=== PATIENT | female | born 1950 | race Caucasian/White ===

== ENCOUNTER 2017-02-03 22:04 | Emergency (ER) | payer MEDICARE, OTHER ==
[2017-02-03] MEDS ORDERED: NS 0.9% 1000 ML* 1,000 ML IV ONE (22:38)
[2017-02-04 00:08] VITALS: BP 117/62
[2017-02-04 01:12] LABS: Urine Bacteria Absent (Absent); Urine Bilirubin Negative (Negative); Urine Glucose Negative (Negative); Urine Nitrite Negative (Negative)
[2017-02-04 01:23] LABS: Hematocrit 36 % (35-47); Hemoglobin 11.9 g/dl (12.0-16.0); Mean Corpuscular HGB Conc 33 g/dl (31-36); Mean Corpuscular Hemoglobin 30 pg (27-31); Mean Corpuscular Volume 91 fL (80-97); Mean Platelet Volume 7 um3 (7.4-10.4); Red Blood Count 3.93 10^6/ul (4.0-5.4); Red Cell Distribution Width 13 % (10.5-15)
[2017-02-04 01:34] LABS: Albumin 4.1 g/dL (3.2-5.2); BUN/Creatinine Ratio 13.4 (8-20); Calcium 8.2 mg/dL (8.6-10.3); EGFR African American 112.9 (>60); EGFR Non-African American 87.8 (>60); Potassium 4.4 mmol/L (3.5-5.0); Total Bilirubin 0.3 mg/dL (0.2-1.0); Total Protein 6.1 g/dL (6.4-8.9)
[2017-02-04 01:54] LABS: TSH (Thyroid Stimulating Horm) 0.91 mcIU/mL (0.34-5.60)
[2017-02-04 01:57] LABS: Magnesium 1.8 mg/dL (1.9-2.7)
--- NOTE | 2017-02-04 02:06 | ED ---
Mendoza Interiano Aidan, scribed for Teresa Blackburn MD on 02/03/17 at 2341 . Syncope/Near Syncope - HPI Summary HPI Summary: 66 y/o female presents to the ED with a complaint of an acute, moderate episode of near-syncope that occurred at 2030 this evening while the patient was drinking with friends out in the sun. She claims to have had only 3 drinks of wine. According to her , she did not lose consciousness or hit her head. After receiving a bag of fluids, she is feeling much better. Hx of reactive airway disease that recently resolved, breast CA, hypothyroidism, GERD, and depression. - History Of Current Complaint Chief Complaint: EDSyncope Time Seen by Provider: 02/03/17 22:22 Hx Obtained From: Patient Onset/Duration: Sudden Onset, Lasting Minutes, Resolved Timing: Intermittent Episode Lasting Context: Witnessed Activity At Onset: At Rest Associated Head Trauma: No Aggravating Factor(s): Other - possibly the heat and alcohol Alleviating Factor(s): Other - bag of fluids Associated Signs And Symptoms: Negative Frequency: Episodes x___ - 1, Episodes Lasting ____ (in Mins/Days/Weeks/Years) - seconds to minutes - Risk Factors Dysrhythmia Risk Factors: Age Greater Than 45 - Allergies/Home Medications Allergies/Adverse Reactions: Allergies Allergy/AdvReac Type Severity Reaction Status Date / Time Adhesive Tape Allergy Hives Verified 02/03/17 22:40 [Tegaderm Dressing] Benzyl Alcohol Allergy Anaphylatic Verified 02/03/17 22:40 [From Herceptin] Shock Chlorhexidine Allergy Rash Verified 02/03/17 22:40 [From Hibiclens] Chocolate Allergy Anaphylatic Verified 02/03/17 22:40 Shock Hydrocodone Allergy Hives Verified 02/03/17 22:40 Penicillins Allergy Rash Verified 02/03/17 22:40 Trastuzumab [From Herceptin] Allergy Anaphylatic Verified 02/03/17 22:40 Shock PMH/Surg Hx/FS Hx/Imm Hx Previously Healthy: No - Hx of hypothyroidism, Breast CA, GERD Respiratory History: Reports: Other Respiratory Problems/Disorders - reactive airway disease Psychiatric History: Reports: Hx Depression Infectious Disease History: No Infectious Disease History: Denies: Traveled Outside the [place] in Last 30 Days - Family History Known Family History: Positive: Hypertension - Social History Occupation: Unemployed - homemaker Lives: With Family Alcohol Use: Occasionally Substance Use Type: Reports: None Smoking Status (MU): Never Smoked Tobacco Review of Systems Constitutional: Negative Eyes: Negative ENT: Negative Cardiovascular: Negative Respiratory: Negative Gastrointestinal: Negative Genitourinary: Negative Musculoskeletal: Negative Skin: Negative Neurological: Other - episode of near-syncope Negative: Headache, Weakness, Paresthesia, Numbness, Syncope, Slurred Speech Psychological: Normal All Other Systems Reviewed And Are Negative: Yes Physical Exam - Summary Physical Exam Summary: General: Well appearing, no pain distress Skin: Warm, Skin Color Reflects Adequate Perfusion, Dry Eyes: EOMI, CHERYL ENT: Pharynx normal, TMs normal; POSITIVE: dry mucous membranes Neck: Supple, nontender Respiratory: CTA, breath sounds present, no rhonchi, no wheezes, no rales Cardiovascular: RRR, no murmur, no rub, no gallop Abdomen: Soft, nontender, Non-distended, no guarding, no rebound Bowel: Present Musculoskeletal: JENNIFER, No edema Neuro: Sensory/motor intact, A&Ox3, CN intact 2-12 Psych: Affect/mood appropriate Triage Information Reviewed: Yes Vital Signs On Initial Exam: Initial Vitals Temp Pulse Resp BP Pulse Ox 97.8 F 84 16 105/67 100 02/03/17 22:31 02/03/17 22:31 02/03/17 22:31 02/03/17 22:31 02/03/17 22:31 Vital Signs Reviewed: Yes - [place] Coma Scale Coma Scale Total: 15 Diagnostics - Vital Signs Vital Signs Temp Pulse Resp BP Pulse Ox 02/03/17 22:34 97.8 F 78 16 106/67 99 02/03/17 22:31 97.8 F 84 16 105/67 100 - Laboratory Lab Results: Lab Results 02/03/17 02/03/17 02/03/17 Range/Units 23:30 23:30 23:30 WBC Cancelled RBC Cancelled Hgb Cancelled Hct Cancelled MCV Cancelled MCH Cancelled MCHC Cancelled RDW Cancelled Plt Count Cancelled MPV Cancelled Neut % (Auto) Cancelled Lymph % (Auto) Cancelled Bibb % (Auto) Cancelled Eos % (Auto) Cancelled Baso % (Auto) Cancelled Absolute Neuts (auto) Cancelled Absolute Lymphs (auto) Cancelled Absolute Monos (auto) Cancelled Absolute Eos (auto) Cancelled Absolute Basos (auto) Cancelled Absolute Nucleated RBC Cancelled CBC Comment Cancelled Nucleated RBC % Cancelled Sodium Cancelled Potassium Cancelled Chloride Cancelled Carbon Dioxide Cancelled Anion Gap Cancelled BUN Cancelled Creatinine Cancelled Est GFR ( Amer) Cancelled Est GFR (Non-Af Amer) Cancelled BUN/Creatinine Ratio Cancelled Glucose Cancelled Lactic Acid Cancelled Calcium Cancelled Magnesium Cancelled Total Bilirubin Cancelled AST Cancelled ALT Cancelled Alkaline Phosphatase Cancelled Troponin I Cancelled Total Protein Cancelled Albumin Cancelled Globulin Cancelled Albumin/Globulin Ratio Cancelled TSH Cancelled Urine Color Urine Appearance Urine pH (5-9) Ur Specific Brooks (1.010-1.030) Urine Protein (Negative) Urine Ketones (Negative) Urine Blood (Negative) Urine Nitrate (Negative) Urine Bilirubin (Negative) Urine Urobilinogen (Negative) Ur Leukocyte Esterase (Negative) Urine WBC (Auto) (Absent) Urine RBC (Auto) (Absent) Ur Squamous Epith Cells (Absent) Urine Bacteria (Absent) Urine Glucose (Negative) Serum Alcohol Cancelled 02/04/17 02/04/17 02/04/17 Range/Units 00:51 01:00 01:00 WBC 10.0 RBC 3.93 L Hgb 11.9 L Hct 36 MCV 91 MCH 30 MCHC 33 RDW 13 Plt Count 242 MPV 7 L Neut % (Auto) 83.7 H Lymph % (Auto) 12.5 L Bibb % (Auto) 2.5 Eos % (Auto) 0.4 Baso % (Auto) 0.9 Absolute Neuts (auto) 8.4 H Absolute Lymphs (auto) 1.3 Absolute Monos (auto) 0.3 Absolute Eos (auto) 0 Absolute Basos (auto) 0.1 Absolute Nucleated RBC 0.01 CBC Comment Nucleated RBC % 0.1 Sodium 136 Potassium 4.4 Chloride 106 Carbon Dioxide 23 Anion Gap 7 BUN 9 Creatinine 0.67 Est GFR ( Amer) 112.9 Est GFR (Non-Af Amer) 87.8 BUN/Creatinine Ratio 13.4 Glucose 108 H Lactic Acid Calcium 8.2 L Magnesium 1.8 L Total Bilirubin 0.30 AST 16 ALT 15 Alkaline Phosphatase 50 Troponin I 0.00 Total Protein 6.1 L Albumin 4.1 Globulin 2.0 Albumin/Globulin Ratio 2.1 TSH 0.91 Urine Color Straw Urine Appearance Clear Urine pH 6.0 (5-9) Ur Specific Brooks 1.005 L (1.010-1.030) Urine Protein Negative (Negative) Urine Ketones Negative (Negative) Urine Blood 1+ H (Negative) Urine Nitrate Negative (Negative) Urine Bilirubin Negative (Negative) Urine Urobilinogen Negative (Negative) Ur Leukocyte Esterase Negative (Negative) Urine WBC (Auto) Trace(0-5/hpf) (Absent) Urine RBC (Auto) Trace(0-2/hpf) (Absent) Ur Squamous Epith Cells Present H (Absent) Urine Bacteria Absent (Absent) Urine Glucose Negative (Negative) Serum Alcohol 126 H Result Diagrams: 02/04/17 01:00 02/04/17 01:00 Lab Statement: Any lab studies that have been ordered have been reviewed, and results considered in the medical decision making process. - EKG EKG 4 Cardiac Rate: NL - 75 BPM EKG Rhythm: Sinus Rhythm EKG Interpretation: ANTERIOR Qs, NORMAL SINUS RHYTHM, NO PRIOR TO COMPARE Course/Dx Course Of Treatment: 66 yo with near syncope labs essentially normal ok to go home - Diagnoses Provider Diagnoses: Syncope Discharge - Discharge Plan Condition: Stable Disposition: HOME The documentation as recorded by the Mendoza raygoza Aidan accurately reflects the service I personally performed and the decisions made by , Teresa Blackburn MD.
== END 2017-02-04 02:43 | disposition home or self-care (01) ==
LOC: ED 22:04
DX: R55 Syncope and collapse (principal); E03.9 Hypothyroidism, unspecified; K21.9 Gastro-esophageal reflux disease without esophagitis; J45.909 Unspecified asthma, uncomplicated; F32.9 Major depressive disorder, single episode, unspecified; Z85.3 Personal history of malignant neoplasm of breast; Z88.5 Allergy status to narcotic agent; Z88.0 Allergy status to penicillin; Z88.8 Allergy status to other drugs, medicaments and biological substances; Z91.048 Other nonmedicinal substance allergy status
CPT/HCPCS: 36415; 80053; 80320; 81003; 81015; 83605; 83735; 84443; 84484; 85025; 93005; 99282; G0480

== ENCOUNTER 2017-09-23 14:37 | Emergency (ER) | payer MEDICARE, OTHER ==
[2017-09-23 15:43] VITALS: BP 150/93
--- NOTE | 2017-09-23 17:10 | UC ---
Zia Interiano Stephanie, scribed for Flaco Roberto MD on 09/23/17 at 1606 . FLU HPI - HPI Summary HPI Summary: The pt is a 67 y/o F presenting to with c/o influenza symptoms that began yesterday. Symptoms include fever, CHANDLER, sore throat, nasal congestion, dizziness and myalgia. The pt denies coughing, abd pain, diarrhea and dysuria. - History of Current Complaint Chief Complaint: UCGeneralIllness Stated Complaint: COUGH/CONGESTION Time Seen by Provider: 09/23/17 15:57 Hx Obtained From: Patient ?: No Onset/Duration: Gradual Onset, Lasting Days - 1, Still Present Severity Initially: Severe Pain Intensity: 8 Pain Scale Used: 0-10 Numeric Associated Signs & Symptoms: Positive: Fever, Myalgia, Sore Throat, Nasal Congestion, Headache - Allergy/Home Medications Allergies/Adverse Reactions: Allergies Allergy/AdvReac Type Severity Reaction Status Date / Time Adhesive Tape Allergy Hives Verified 09/23/17 15:43 [Tegaderm Dressing] MS Benzyl Alcohol Allergy Anaphylatic Verified 09/23/17 15:43 [From Herceptin] Shock MS Chlorhexidine Allergy Rash Verified 09/23/17 15:43 [From Hibiclens] MS Chocolate [Chocolate] Allergy Anaphylatic Verified 09/23/17 15:43 Shock MS Hydrocodone [Hydrocodone] Allergy Hives Verified 09/23/17 15:43 MS Penicillins [Penicillins] Allergy Rash Verified 09/23/17 15:43 MS Trastuzumab Allergy Anaphylatic Verified 09/23/17 15:43 [From Herceptin] Shock Home Medications: Home Medications ALPRAZolam TAB* [Xanax TAB*] 0.5 mg PO TID 09/23/17 [History Confirmed 09/23/17] Albuterol HFA INHALER* [Ventolin HFA Inhaler*] 1 puff PO Q4H PRN 09/23/17 [ History Confirmed 09/23/17] BuPROPion XL* [Bupropion XL*] 300 mg PO DAILY 09/23/17 [History Confirmed ] Carvedilol TAB* [Coreg TAB*] 6.25 mg PO BID 09/23/17 [History Confirmed 09/23/17 ] Denosumab(NF) [Prolia(NF)] 60 mg SUBCUT MONTHLY 09/23/17 [History Confirmed 12/05] Fluorouracil (Topical) [Carac] 1 applic TOPICAL DAILY 09/23/17 [History Confirmed 09/23/17] Fluticasone-Salmeterol 250-50* [Advair Diskus 250-50*] 1 puff PO BID 09/23/17 [ History Confirmed 09/23/17] Letrozole 2.5 mg PO DAILY 09/23/17 [History Confirmed 09/23/17] Levothyroxine TAB* [Synthroid TAB*] 50 mcg PO DAILY 09/23/17 [History Confirmed 09/23/17] Omeprazole CAP* [Prilosec CAP* 20 MG] 20 mg PO DAILY 09/23/17 [History Confirmed 09/23/17] Ramipril CAP* [Altace CAP*] 10 mg PO DAILY 09/23/17 [History Confirmed 09/23/17] Venlafaxine EXT RELEASE CAP* [Effexor Xr CAP*] 75 mg PO DAILY 09/23/17 [History Confirmed 09/23/17] PMH/Surg Hx/FS Hx/Imm Hx Respiratory History: Asthma - Surgical History Surgical History: Yes - double mastectomy - Family History Known Family History: Positive: Hypertension, Other - multiple sclerosis, cancer , - Social History Occupation: Retired Lives: With Family Alcohol Use: Occasionally Substance Use Type: None Smoking Status (MU): Never Smoked Tobacco Review of Systems Constitutional: Fever Skin: Negative Eyes: Negative ENT: Sore Throat, Sinus Congestion Respiratory: Negative Cardiovascular: Negative Gastrointestinal: Negative Genitourinary: Negative Motor: Negative Neurovascular: Negative Musculoskeletal: Myalgia Neurological: Headache, Other - dizziness All Other Systems Reviewed And Are Negative: Yes Physical Exam Triage Information Reviewed: Yes Vital Signs: Initial Vital Signs Temp 100.1 F 09/23/17 15:39 Pulse 99 09/23/17 15:39 Resp 17 09/23/17 15:39 BP 150/93 09/23/17 15:39 Pulse Ox 98 09/23/17 15:39 Vital Signs Reviewed: Yes - Additional Comments General: Mildly ill-appearing, no pain distress Skin: warm, color reflects adequate perfusion, dry Head: normal Eyes: EOMI, CHERYL ENT: normal Neck: supple, nontender Respiratory: CTA, breath sounds present Cardiovascular: RRR Abdomen: soft, nontender Bowel: present Musculoskeletal: normal, strength/ROM intact Neurological: normal, sensory/motor intact, A&O x3 Psychological: affect/mood appropriate Flu Course/Dx - Course Course Of Treatment: PATIENT HAS HAD DIZZINESS AND WEAKNESS FOR MONTHS. THESE SX ARE WORSE NOW WITH THE FLU. DISCUSSED IF GETTING WORE WILL NEED TO HAVE EVAL IN ED. - Differential Dx/Diagnosis Provider Diagnoses: INFLUENZA Discharge - Discharge Plan Condition: Stable Disposition: HOME Prescriptions: Oseltamivir CAP* [Tamiflu CAP*] 75 mg PO BID #10 cap Patient Education Materials: Influenza (ED) Referrals: Almaz Greenwood MD [Primary Care Provider] - Additional Instructions: FOLLOW UP WITH YOUR DOCTOR. GO TO THE EMERGENCY DEPARTMENT FOR ANY WORSENING OF YOUR CONDITION OR QUESTIONS OR CONCERNS. The documentation as recorded by the Zia raygoza Stephanie accurately reflects the service I personally performed and the decisions made by me, Flaco Roberto MD.
[2017-09-23] MEDS ORDERED: Oseltamivir CAP* 75 MG CAP PO ONE (17:23)
== END 2017-09-23 17:32 | disposition home or self-care (01) ==
LOC: UCEAST 14:37
DX: J11.1 Influenza due to unidentified influenza virus with other respiratory manifestations (principal); J45.909 Unspecified asthma, uncomplicated; Z90.13 Acquired absence of bilateral breasts and nipples; Z88.5 Allergy status to narcotic agent; Z88.0 Allergy status to penicillin; Z91.048 Other nonmedicinal substance allergy status
CPT/HCPCS: 87502; 99212; A9270-GY; G0463

== ENCOUNTER 2019-01-04 20:17 | Emergency (ER) | payer MEDICARE, OTHER ==
[2019-01-04 20:30] VITALS: BP 150/84
--- NOTE | 2019-01-04 20:51 | UC ---
Complaint Female HPI - HPI Summary HPI Summary: 68 yo female with dysuria/urgency/frequency x 5 hours no f/c no n/v no back or abd pain - History Of Current Complaint Chief Complaint: UCGU Stated Complaint: URINARY COMPLAINT Time Seen by Provider: 01/04/19 20:37 Hx Obtained From: Patient Hx Last Menstrual Period: post menopause Onset/Duration: Sudden Onset, Lasting Hours Timing: Intermittent Severity Initially: Moderate Severity Currently: Moderate Pain Intensity: 5 Pain Scale Used: 0-10 Numeric Character: Burning Aggravating Factor(s): Urination Associated Signs And Symptoms: Positive: Fever, Nausea - Allergies/Home Medications Allergies/Adverse Reactions: Allergies Allergy/AdvReac Type Severity Reaction Status Date / Time Adhesive Tape Allergy Hives Verified 09/23/17 15:43 [Tegaderm Dressing] benzyl alcohol Allergy Rash Verified 01/04/19 20:52 hydrocodone Allergy Hives Verified 01/04/19 20:52 Penicillins Allergy Hives Verified 01/04/19 20:53 trastuzumab Allergy Rash Verified 01/04/19 20:53 Home Medications: Home Medications Calcium Carbonate/Vitamin D3 [Calcium 500 + Vit D Caplet] 01/04/19 [History Confirmed 01/04/19] Fluticasone-Salmeterol 250-50* [Advair Diskus 250-50*] 01/04/19 [History] Magnesium 01/04/19 [History] Multivitamin [One-Daily Multi-Vitamin] 1 each PO 01/04/19 [History] PMH/Surg Hx/FS Hx/Imm Hx Previously Healthy: Yes Respiratory History: Asthma, Bronchitis Cancer History: Breast Cancer - Surgical History Surgical History: Yes Surgery Procedure, Year, and Place: breast removal 2011. gallbladder 2011. right hip 2011. oopherectomy 2019 - Family History Known Family History: Positive: Hypertension, Other - multiple sclerosis, cancer , - Social History Alcohol Use: Daily Substance Use Type: None Smoking Status (MU): Never Smoked Tobacco Review of Systems All Other Systems Reviewed And Are Negative: Yes Constitutional: Positive: Negative Skin: Positive: Negative Eyes: Positive: Negative ENT: Positive: Negative Respiratory: Positive: Negative Cardiovascular: Positive: Negative Gastrointestinal: Positive: Negative Genitourinary: Positive: Dysuria, Hematuria, Frequency Motor: Positive: Negative Neurovascular: Positive: Negative Musculoskeletal: Positive: Negative Neurological: Positive: Negative Psychological: Positive: Negative Physical Exam Triage Information Reviewed: Yes Appearance: Well-Appearing, No Pain Distress, Well-Nourished Vital Signs: Initial Vital Signs Temp 98.6 F 01/04/19 20:21 Pulse 88 01/04/19 20:21 Resp 16 01/04/19 20:21 BP 150/84 01/04/19 20:21 Pulse Ox 97 01/04/19 20:21 Vital Signs Reviewed: Yes Eyes: Positive: Conjunctiva Clear ENT: Positive: Hearing grossly normal. Negative: Nasal congestion, Nasal drainage, Muffled voice, Hoarse voice, Dental tenderness Neck: Positive: Supple, Nontender Respiratory: Positive: Lungs clear, Normal breath sounds, No respiratory distress, No accessory muscle use Cardiovascular: Positive: RRR, No Murmur Abdomen Description: Positive: Nontender. Negative: CVA Tenderness (R), CVA Tenderness (L) Musculoskeletal: Positive: ROM Intact, No Edema Neurological: Positive: Alert Diagnostics - Laboratory Lab Results: + leuks, + rbcs Complaint Female Dx - Differential Dx/Diagnosis Provider Diagnosis: UTI (urinary tract infection) Discharge - Sign-Out/Discharge Documenting (check all that apply): Patient Departure All imaging exams completed and their final reports reviewed: No Studies - Discharge Plan Condition: Stable Disposition: HOME Prescriptions: Cephalexin CAP* [Keflex CAP*] 500 mg PO BID #8 cap Phenazopyridine TAB* [Pyridium TAB*] 100 mg PO TID #4 tab Patient Education Materials: Urinary Tract Infection in Women (ED) Referrals: Almaz Greenwood MD [Primary Care Provider] - 2 Days (if not improved) - Billing Disposition and Condition Condition: STABLE Disposition: Home
[2019-01-04] MEDS ORDERED: Phenazopyridine TAB* 100 MG PO ONE ×2 (20:53→20:54)
[2019-01-04] MEDS ORDERED: Cephalexin CAP* 500 MG PO ONE ×2 (20:53)
--- NOTE | 2019-01-06 15:46 | UC ---
- Progress Note Progress Note: 01/06/2019 Urine culture final report: no growth PT Rx Keflex PO for possible UTI. Please call back PT and inform result. Advise to stop antibiotic. Thank you Lyndsey Márquez PA-C Course/Dx - Diagnoses Provider Diagnoses: UTI (urinary tract infection) Discharge - Sign-Out/Discharge Documenting (check all that apply): Post-Discharge Follow Up All imaging exams completed and their final reports reviewed: No Studies - Discharge Plan Condition: Stable Disposition: HOME Prescriptions: Cephalexin CAP* [Keflex CAP*] 500 mg PO BID #8 cap Phenazopyridine TAB* [Pyridium TAB*] 100 mg PO TID #4 tab Patient Education Materials: Urinary Tract Infection in Women (ED) Referrals: Almaz Greenwood MD [Primary Care Provider] - 2 Days (if not improved) - Billing Disposition and Condition Condition: STABLE Disposition: Home
== END 2019-01-04 21:11 | disposition home or self-care (01) ==
LOC: UCEAST 20:17
DX: N39.0 Urinary tract infection, site not specified (principal); R31.9 Hematuria, unspecified; R50.9 Fever, unspecified; R11.0 Nausea; J45.909 Unspecified asthma, uncomplicated; Z88.5 Allergy status to narcotic agent; Z88.0 Allergy status to penicillin; Z88.8 Allergy status to other drugs, medicaments and biological substances; Z91.048 Other nonmedicinal substance allergy status
CPT/HCPCS: 81003; 87086; 99213; A9270-GY; G0463